=== PATIENT | male | born 1945 | race Caucasian/White ===

== ENCOUNTER 2017-02-09 10:07 | Day surgery (SDC) | payer MEDICARE ==
[~2017-02-09] VITALS: Ht 182.9 cm; Wt 96.6 kg
[~2017-02-09 10:07] MED LIST: ALLOPURINOL300 MG PO; AMLODIPINE10 MG PO; GABAPENTIN300 M2 PO; GLIPIZIDE ER5 M1 PO; HYZAAR1 TA2 PO; PRAVASTATIN80 MG PO; PROTONIX40 M2 PO
[2017-02-09 12:58] VITALS: BP 124/74
== END 2017-02-09 12:52 | disposition home or self-care (01) ==
LOC: ENDO 10:07 → ORM 15:00
PROVIDERS: ATTEND Internal Medicine Gastroenterology
PROC: 0DB48ZX Excision of Esophagogastric Junction, Via Natural or Artificial Opening Endoscopic, Diagnostic (ICD-10-PCS; principal; 2017-02-09)
PROC: 0DBN8ZX Excision of Sigmoid Colon, Via Natural or Artificial Opening Endoscopic, Diagnostic (ICD-10-PCS; 2017-02-09)
PROC: 0DBH8ZX Excision of Cecum, Via Natural or Artificial Opening Endoscopic, Diagnostic (ICD-10-PCS; 2017-02-09)
PROC: 0DBL8ZX Excision of Transverse Colon, Via Natural or Artificial Opening Endoscopic, Diagnostic (ICD-10-PCS; 2017-02-09)
PROC: 0DBM8ZX Excision of Descending Colon, Via Natural or Artificial Opening Endoscopic, Diagnostic (ICD-10-PCS; 2017-02-09)
DX: R14.0 Abdominal distension (gaseous) (principal); K59.00 Constipation, unspecified; K21.9 Gastro-esophageal reflux disease without esophagitis; K29.70 Gastritis, unspecified, without bleeding; K44.9 Diaphragmatic hernia without obstruction or gangrene; K64.4 Residual hemorrhoidal skin tags; K64.8 Other hemorrhoids; K57.30 Diverticulosis of large intestine without perforation or abscess without bleeding; K63.5 Polyp of colon; D12.0 Benign neoplasm of cecum; D12.5 Benign neoplasm of sigmoid colon; D12.3 Benign neoplasm of transverse colon; E78.00 Pure hypercholesterolemia, unspecified; I10 Essential (primary) hypertension; E11.9 Type 2 diabetes mellitus without complications; Z79.899 Other long term (current) drug therapy; Z86.010 Personal history of colon polyps